=== PATIENT | female | born 1950 | race Caucasian/White ===

== ENCOUNTER → 2017-07-07 | Day surgery (SDC) | payer MEDICARE ==
[~2017-07-07] MED LIST: ACIDOPHILUS1 EAC4 PO; AMLODIPINE BESY10 MG PO; ASPIRIN325 M2 PO; ASPIRIN325 MG PO; AZO CRANBERRY1 EAC1 PO; AZO95 MG PO; BELLADONNA/OPIUM 60 MG SUPP PR ONE; BENADRYL25 M1 PO; CALCIUM 500+D1 EACH PO; CEFTIN500 MG PO; CITALOPRAM HBR20 MG PO; COLACE100 MG PO; COUMADIN3 MG PO; COUMADIN4 MG PO; DEXAMETHASONE SOD PHOS INJ 4 MG/ML VIAL ONE; DIGOXIN125 MCG PO; EPHEDRINE SULFATE INJ 50 MG/10 ML SYR ONE; FENTANYL CITRATE/PF 100MCG/2 ML INJ ONE; FERROUS SULFAT324 MG PO; HUMALOG100 UNITS/ SQ; HYDROCODONE-ACE15 M2 PO; HYDROXUREA; HYDROXYUREA500 MG PO; HYDROXYZINE HCL25 MG PO; IOPAMIDOL 610MG/1ML 300 MG/ML VIAL IV ONE; LIDOCAINE HCL 2% LOCAL INJ 5 ML SDV VIAL INJ ONE; METOPROLOL SUCC50 MG PO; METOPROLOL TART25 MG PO; METOPROLOL TART50 MG PO; MIDAZOLAM HCL 2 MG/2 ML VIAL ONE; MILK OF MA400 MG/5 M PO; NAPROXEN250 MG PO; NIFEDICAL XL60 MG PO; NIFEDIPINE ER30 M1 PO; NORCO 10-325 T1 EACH PO; OMEPRAZOLE40 MG PO; ONDANSETRON HCL INJ 2 MG/ML VIAL ONE; PRAVASTATIN SOD40 MG PO; PRILOSEC10 M1 PO; PROBIOTIC COMP1 EACH PO; PROPAFENONE HC225 MG PO; PROPOFOL IV EMULSION 10 MG/ML 20 ML VIAL ONE; ROBAXIN-750750 MG PO; SEVOFLURANE INHAL SOLN 250 ML PEN BTL ONE; SYNTHROID50 MCG PO; TYLENOL # 31 EA PO; TYLENOL325 MG PO; UTI-STAT L3875 MG/30 PO; VITAMIN D; VITAMIN D1000 UNI1 PO; WARFARIN SODIU2.5 MG PO; Z RYTHMOL PO; Z.0.LOPRESSOR100 MG PO; Z.0.NAPROXEN500 M1 PO; Z.0.PRILOSEC20 MG PO; Z.0.SYNTHROID50 MCG PO; Z.0.ZOCOR20 MG PO; ZOCOR20 MG PO
--- OUTSIDE RECORDS SUMMARY | 2017-07-07 12:24 | XMS REPORT ---
Author Author [facility] Address Unknown Phone Unavailable Care Team Providers Care [employer] Name Role Phone MITCHELL FRAZIER Unavailable Unavailable Problems This patient has no known problems. Allergies, Adverse Reactions, Alerts This patient has no known allergies or adverse reactions. Medications This patient has no known medications. Results Test Description Test Time Test Comments Text Results Atomic Results Result Comments CT ABDOMEN/PELVIS WO [place] [address] Patient Name: GILMA GRANADOS MR #: [id number] : 1950 Age/Sex: 67/F Req #: [id number] Adm Physician: MITCHELL FRAZIER MD Ordered by: BERTA HEADLEY MD Report #: [id number] Location: [facility]URG Room/Bed: [facility] Procedure: [id number] CT/CT ABDOMEN/PELVIS WO Exam Date: 03/02/17 Exam Time: 1600 REPORT STATUS: Signed EXAM: CT Abdomen and Pelvis WITHOUT contrast INDICATION: Abdominal pain COMPARISON: CT abdomen and pelvis with contrast 02/21/2017. TECHNIQUE: Abdomen and pelvis were scanned utilizing a multidetector helical scanner from the lung base to the pubic symphysis. Coronal and sagittal reformations were obtained. The lack of intravenous contrast limits the evaluation of the solid organs, vasculature, and possible lymphadenopathy. Protocol: General survey without contrast IV CONTRAST: No intravenous contrast was administered as per physician request. ORAL CONTRAST: None. COMPLICATIONS: None. RADIATION DOSE: Total Exam DLP: 869.4 mGy*cm. CTDIvol has been reviewed. It is below the limits set by the Radiation Protocol Committee (RPC). FINDINGS: LINES: Partially visualized cardiac pacing leads. Lower thorax: No parenchymal abnormality. No pneumothorax. No pleural effusion. Mitral valve calcifications. Liver: No focal mass. No hepatomegaly. Normal parenchyma. Gallbladder: Cholecystectomy. Biliary tree: No intrahepatic duct dilation. No extrahepatic duct dilation. Spleen: The spleen measures 17.0 cm in the left midclavicular line, series 301 image 61. No focal mass. Pancreas: No focal mass. Normal pancreatic duct. No peripancreatic inflammatory changes. Kidneys: Bilateral punctate nephrolithiasis. 4.2 mm calculus is present in the proximal right ureter, series 301 image 52. There is no right hydroureter or hydronephrosis. No hydronephrosis. No cysts. No perinephric soft tissue inflammatory changes. Adrenal glands: No adrenal nodules.. Bladder: Normal urinary bladder. Pelvic organs: Normal uterus and ovaries. GI: No bowel wall thickening. No air-fluid levels. The stomach and small bowel are normal. The colon is normal. Normal appendix. A moderate amount of retained feces limits intraluminal evaluation of the colon. Peritoneum/ retroperitoneum: No pneumoperitoneum. No ascites. No drainable fluid collection. Lymph nodes: No lymphadenopathy. . Vessels: No focal abnormality. Aortoiliac and great vessel atherosclerotic calcifications. Limited evaluation. Bones: No focal abnormality. Degenerative changes of the lumbar spine. Soft tissues: No focal abnormality. IMPRESSION: Proximal right ureteral calculus, without hydroureter or hydronephrosis. Bilateral nonobstructing nephrolithiasis. Splenomegaly. Signed by: Dr. Denis Bar M.D. on 03/02/2017 4:43 PM Dictated By: DENIS BAR MD 42 Transcribed By: ERIN on 03/02/171642 COPY TO: BERTA HEADLEY MD CHEST 2 VIEWS [place] [address] Patient Name: GILMA GRANADOS MR #: [id number] : 1950 Age/Sex: 67/F Req # : [id number] Adm Physician: MITCHELL FRAZIER MD Ordered by: MITCHELL FRAZIER MD Report #: [id number] Location: [facility] Room/Bed: [place] [address] _ Procedure: [id number] DX/CHEST 2 VIEWS Exam Date: 02/21/17 Exam Time: 1440 REPORT STATUS: Signed PROCEDURE: Frontal and lateral views of the chest. COMPARISON: Chest radiograph 04/09/2015. INDICATIONS: COLITIS FINDINGS: Lines/tubes: Cardiac pacing leads overlie the right atrium and right ventricle. Lungs: The lungs are moderately inflated and clear. There is no evidence of pneumonia or pulmonary edema. Pleura: There is no pleural effusion or pneumothorax. Heart and mediastinum: The heart and the mediastinum are normal. Bones: No acute bony abnormality. Right shoulder prosthesis. Median sternotomy wires. Superiormost wire is broken. Upper abdomen: No free air under the diaphragm. Surgical clips overlie the abdomen on lateral view. IMPRESSION: No acute cardiopulmonary disease. Dictated by: Tim Lema M.D. on 02/21/2017 at 16:01 Electronically approved by: Tim Lema M.D. on 02/21/2017 at 16:01 Dictated By: TIM LEMA MD 1601 Transcribed By: RHIANNON on 02/21/17 1601 COPY TO: MITCHELL FRAZIER MD CT ABDOMEN/PELVIS W [place] [address] Patient Name: GILMA GRANADOS MR #: [id number] : 1950 Age/Sex: 67/F Req #: [id number] Adm Physician: Ordered by: ABRAHAM MAGAÑA MD Report #: [id number] Location: Room/Bed: Procedure: [id number] CT/CT ABDOMEN/PELVIS W Exam Date: Exam Time: REPORT STATUS: Signed PROCEDURE: CT ABDOMEN AND PELVIS WITH CONTRAST TECHNIQUE: The abdomen and pelvis were scanned utilizing a multidetector helical scanner from the diaphragm the lesser trochanter after the IV administration of 100 cc of Isovue 370 and the oral administration of 900 cc of Gastroview/water. Coronal and sagittal multiplanar reformations were obtained. COMPARISON: Abdominal CT 2014. INDICATIONS: ABDOMEN PAIN FINDINGS: LOWER THORAX: Cardiac pacing leads in the right atrium and right ventricle. Otoole catheter in place. HEPATOBILIARY: Liver is enlarged measuring approximately 19.1 cm in the right midclavicular line. No focal hepatic lesions. No biliary ductal dilatation. Gallbladder is surgically absent. SPLEEN: Spleen is enlarged measuring 17.3 cm in length (previously approximately 18.5 cm). Stable 0.9 cm hypodensity in the posterior aspect of the spleen which may represent a hemangioma or complicated cyst. PANCREAS: No focal masses or ductal dilatation. ADRENALS: No adrenal nodules. KIDNEYS/URETERS: Multiple nonobstructing calculi in the right kidney. Partial left nephrectomy. Multifocal areas of scarring in both kidneys, left greater than right. No hydronephrosis, stones, or solid mass lesions. Stable left superior and inferior, and right medial interpolar renal hypodensities likely representing cysts. PELVIC ORGANS/BLADDER: Air within the mildly distended urinary bladder related to Otoole catheter. PERITONEUM / RETROPERITONEUM: No free air or fluid. LYMPH NODES: No lymphadenopathy. VESSELS: Scattered vascular calcifications. No abdominal aortic aneurysm. GI TRACT: Stable surgical clips of the stomach likely related to restrictive bariatric surgery. No evidence of bowel obstruction. Duodenal diverticulum measuring 3.2 cm along the third segment. Mild colonic wall thickening of the sigmoid colon. Sigmoid colon diverticula without evidence of diverticulitis. The BONES AND SOFT TISSUES: Nonspecific stranding in the visualized portions of the right lateral thigh. Degenerative changes of the spine. Mild retrolisthesis of L2 on L3 and anterolisthesis of L4 and L5. IMPRESSION: 1. Mild colonic wall thickening of the sigmoid colon which may be related to colitis or underdistention. 2. Otherwise, no acute intraabdominal abnormalities. 3. Hepatosplenomegaly. 4. Right nephrolithiasis. 5. Mild stranding in the visualized portions of the right lateral thigh. Recommend correlation for recent trauma. 1. Dictated by: Tim Lema M.D. on 02/21/2017 at 13:10 Electronically approved by: Tim Lema M.D. on 02/21/2017 at 13:10 Dictated By: TIM LEMA MD 1310 COPY TO: ABRAHAM MAGAÑA MD
[2017-07-07 14:25] LABS: BASOPHILS % 0.5 % (0.0-1.0); EOSINOPHILS # (AUTO) 0.1 (0.0-0.4); EOSINOPHILS % 1.2 % (0.0-6.0); HEMATOCRIT 35.9 % (34.2-44.1); HEMOGLOBIN 11.9 g/dL (12.0-16.0); LYMPHOCYTES # (AUTO) 0.8 (1.0-3.2); LYMPHOCYTES % 10.1 % (18.0-39.1); MEAN CORPUSCULAR HGB CONC 33.1 g/dL (31-35); MEAN CORPUSCULAR VOLUME 105.6 fL (81-99); MONOCYTES # (AUTO) 0.2 (0.2-0.8); MONOCYTES % 2.2 % (4.4-11.3); NEUTROPHILS # (AUTO) 6.9 (2.1-6.9); NEUTROPHILS % 84.2 % (38.7-80.0); PLATELET COUNT 494 x10e3/uL (140-360); RED CELL DISTRIBUTION WIDTH 20.5 % (11.7-14.4)
[2017-07-07 14:46] LABS: ALANINE AMINOTRANSFERASE 11 IU/L (0-55); ALBUMIN 3.1 g/dL (3.5-5.0); ALBUMIN/GLOBULIN RATIO 1.3 (0.8-2.0); ALKALINE PHOSPHATASE 44 IU/L (40-150); ANION GAP 11.3 mmol/L (8-16); BLOOD UREA NITROGEN 19 mg/dL (7-26); BUN/CREATININE RATIO 27 (6-25); CALCIUM 8.4 mg/dL (8.4-10.2); CARBON DIOXIDE 28 mmol/L (22-29); CHLORIDE 107 mmol/L (98-107); CREATININE, SERUM 0.71 mg/dL (0.57-1.11); EST GLOMERULAR FILTRATION RATE > 60 ML/MIN (60-); GLUCOSE 86 mg/dL (74-118); POTASSIUM 4.3 mmol/L (3.5-5.1); SODIUM 142 mmol/L (136-145)
--- NOTE | 2017-07-07 15:12 | Diagnostic Imaging Report ---
PROCEDURE: Frontal and lateral views of the chest. COMPARISON: Chest x-ray 02/21/2017 INDICATIONS: PREOPERATIVE CHEST XRAY FOR KIDNEY STONE SURGERY FINDINGS: Lines/tubes: Left-sided pacemaker with 2 intact wires. Median sternotomy wires. Lungs: The lungs are well inflated and clear. There is no evidence of pneumonia or pulmonary edema. Pleura: There is no pleural effusion or pneumothorax. Heart and mediastinum: The heart and the mediastinum are normal. Bones: No acute bony abnormality. Left shoulder arthroplasty. Right upper quadrant cholecystectomy clips. IMPRESSION: No acute cardiopulmonary disease. Dictated by: Uche Richey M.D. on 07/07/2017 at 15:12 Electronically approved by: Uche Richey M.D. on 07/07/2017 at 15:12
--- NOTE | 2017-07-07 15:16 | Diagnostic Imaging Report ---
PROCEDURE:X-RAY ABDOMEN - KUB COMPARISON:CT abdomen pelvis 03/02/2017. INDICATIONS:PREOPERATIVE CHEST XRAY FOR KIDNEY STONE SURGERY FINDINGS: There are no dilated loops of bowel to suggest obstruction. There are no masses or abnormal calcifications. There is no evidence of free air. No acute osseous abnormalities are present. Moderate severe degenerative changes in the lumbar spine. CONCLUSION: 1. Position of the KUB as well as breathing motion artifact limits evaluation. Although there were renal stones seen on CT abdomen pelvis , these are not well-visualized on this exam. 2. 0.7 cm linear calcification in the lower pole of left kidney along the cortex remain unchanged. Dictated by: Uche Richey M.D. on 07/07/2017 at 15:16 Electronically approved by: Uche Richey M.D. on 07/07/2017 at 15:16
[2017-07-07 15:22] LABS: INR 1.4; PROTHROMBIN TIME 16.1 seconds (11.9-14.5)
[2017-07-07 15:23] LABS: PARTIAL THROMBOPLASTIN TIME 35.4 seconds (23.8-35.5)
[2017-07-07 15:28] LABS: HYPOCHROMASIA MARKED; LYMPHOCYTES % (MANUAL) 11 % (19-48); MONOCYTES % (MANUAL) 2 % (3.4-9.0); NEUTROPHILS % (MANUAL) 87 % (40-74); OVALOCYTES MODERATE; PLATELET ESTIMATE MODERATELY INCREASED; POLYCHROMASIA FEW; RBC MORPHOLOGY COMMENT ABNORMAL
--- NOTE | 2017-08-14 00:58 | Operative Report ---
DATE OF PROCEDURE: July 07, 2017 PREOPERATIVE DIAGNOSES: 1. Right ureterolithiasis. 2. Microhematuria. POSTOPERATIVE DIAGNOSES: 1. Right ureterolithiasis. 2. Microhematuria. 3. Cystolithiasis. 4. Atrophic vaginitis. 5. Minimal rectocele. OPERATIONS PERFORMED: 1. Cystourethroscopy with bilateral ureteral catheterization and retrograde ureteropyelography (separate procedure performed for the microhematuria). 2. Right ureteroscopy (separate procedure performed to evaluate for the right ureterolithiasis, which was previously documented). 3. Cystourethroscopy with removal of foreign body (bladder stone). 4. Interpretation of retrograde ureteropyelography. 5. Supervision of fluoroscopy, no radiologist present. 6. Radiological services for supervision and interpretation of ureteroscopy. 7. Pelvic examination under anesthesia. ANESTHESIA: General. COMPLICATIONS: None. CLINICAL SUMMARY: Ariela Parsons is 67-year-old woman with microhematuria. She was found to have right ureterolithiasis. Patient is brought to the operating room today to manage and evaluate. She is aware of the risks of bleeding, infection, injury to adjacent structures, need for additional procedures, and elected to proceed. OPERATIVE PROCEDURE IN DETAIL: Informed consent was verified. Ariela Parsons was properly identified, taken to the operating room and placed on the cystoscopy table in supine position. Anesthesia was uneventfully begun. The patient was then carefully and gently repositioned in the dorsal lithotomy position with all pressure points well padded. Her genitalia were prepared and draped in usual sterile fashion. The 22.5-Turkish cystoscope sheath with the obturator in place was atraumatically inserted in patient's urethra and the bladder was drained. Panendoscopy of the urinary bladder revealed a stone. This stone was grasped, pulled out, and sent for analysis. Panendoscopy of the urinary bladder revealed a normal left ureteral orifice. The right ureteral orifice was dilated as if it had just passed the stone. A ureteral catheter was used to cannulate each ureter, and retrograde ureteral pyelograms were performed. A guidewire was then placed into the right ureter and guided to the level of the patient's kidney. Flexible ureteroscope was then placed over the guidewire and guided to the level of patient's kidney. Careful panendoscopy of the entire urinary tract was performed. The ureter was unremarkable. There were no tumors, there were no stones. There was dilation noted of the ureters as one would expect having just passed the stone. Proximal to that, there were no stones seen. Flexible ureteroscopy of the intrarenal collecting system revealed some Terence's plaques, but no suspicious lesions. We carefully reexamined the entire collecting system on the right hand side and did not find any residual stones. The ureter was completely normal except for the fact that it did show fullness as one would expect with a recently passed stone. Interpretation of retrograde ureteropyelography: Contrast was instilled in retrograde fashion bilaterally. There were no tumors, no stones, and no diverticula. Unobstructed drainage was observed bilaterally fluoroscopically. There was fullness of right side collecting system compared to left side collecting system, which we attributed to recently passed stone. The patient's bladder was then drained. The cystoscope was withdrawn. Pelvic examination under anesthesia revealed atrophic vaginitis with minimal rectocele. No abnormal palpable pelvic masses could be appreciated. There were no obvious mucosal lesions. Patient was then uneventfully reversed from anesthesia and taken to recovery room in stable condition. There were no complications to the procedure. She tolerated the procedure well. Explicit postoperative instructions were given. Will follow the patient up in the office. Job#: [id number]
== END | disposition home or self-care (01) ==
LOC: OR 12:22
PROVIDERS: ATTEND Urology
DX: N20.1 Calculus of ureter (principal); N21.0 Calculus in bladder; N95.2 Postmenopausal atrophic vaginitis; N81.6 Rectocele; N28.89 Other specified disorders of kidney and ureter; I69.351 Hemiplegia and hemiparesis following cerebral infarction affecting right dominant side; I10 Essential (primary) hypertension; R06.02 Shortness of breath; E11.9 Type 2 diabetes mellitus without complications; Z79.01 Long term (current) use of anticoagulants; Z90.5 Acquired absence of kidney; Z95.0 Presence of cardiac pacemaker
CPT/HCPCS: 36415; 52351; 71046; 74018; 74420; 80053; 83970; 84550; 85025; 85610; 85730; 88300; 93005; J1100; J2001; J2250; J2405; Q9967